=== PATIENT | female | born 1980 | race Caucasian/White ===

== ENCOUNTER 2016-08-21 11:34 | Outpatient (CLI) | payer OTHER ==
[2016-08-21 11:51] LABS: BASOPHILS % 0.5 (0.0-1.5); EOSINOPHILS % 0.8 % (0.0-6.8); MEAN CORPUSCULAR VOLUME 97.6 fl (80.0-100.0); MONOCYTES % 4.1 % (0.0-11.0)
[2016-08-21 12:22] LABS: eGFR (African) > 60; eGFR (Non-African) > 60
== END 2016-08-21 11:35 ==
LOC: LAB 11:34
PROVIDERS: ATTEND Physician Assistant
DX: Z00.00 Encounter for general adult medical examination without abnormal findings (principal)
CPT/HCPCS: 36415; 80053; 84443; 85025

== ENCOUNTER 2016-09-11 10:41 | Outpatient (CLI) | payer OTHER ==
[2016-09-12 10:32] LABS: CANDIDA SPECIES DNA PROBE NEGATIVE (NEGATIVE); GARDNERELLA VAGINALIS POSITIVE (NEGATIVE); TRICHOMONAS VAGINALIS NEGATIVE (NEGATIVE)
== END 2016-09-11 10:42 ==
LOC: LABRHC 10:41
PROVIDERS: ATTEND Physician Assistant
DX: Z12.4 Encounter for screening for malignant neoplasm of cervix (principal); N89.8 Other specified noninflammatory disorders of vagina; Z11.3 Encounter for screening for infections with a predominantly sexual mode of transmission
CPT/HCPCS: 87480; 87491; 87510; 87591; 88148; G0143

== ENCOUNTER 2017-09-12 13:27 | Emergency (ER) | payer BC ==
[2017-09-12] MEDS ORDERED: DIPH,PERTUSS(ACELL),TET VAC/PF 0.5 ML DISP.SYRIN IM ONE (14:14)
--- NOTE | 2017-09-12 14:16 | ED Physician Documentation ---
Lower Extremity Injury - HISTORIAN Historian: patient, spouse - HPI Stated Complaint: left foot injury Chief Complaint: Lower Extremity Injury Additional Information: working on camper w/shruthi slipped fell apparently shruthi hit dorsum lt foot w/ swelling abrasion eccymosis tenderness Onset: hours (1315) Where: home Severity: moderate Context: direct blow, wearing shoes (flip flops) Associated Symptoms:: swelling. denies: numbness distally, snapping sensation, popping sensation, unable to bear weight, became dizzy, seizure - ROS CONST: no problems CVS/RESP: denies: chest pain, shortness of breath, cough MS/SKIN/LYMPH: foot swelling. denies: none, ankle swelling NEURO: denies: headache, head injury, anxiety - PAST HX Past History: none Immunizations: denies: tetanus, UTD Allergies/Adverse Reactions: Allergies Allergy/AdvReac Type Severity Reaction Status Date / Time No Known Drug Allergies Allergy Unknown Unverified 09/12/17 13:55 - SOCIAL HX Smoking History: denies: non-smoker Alcohol Use: occasionally Drug Use: none - FAMILY HX Family History: no significant history - VITAL SIGNS Vital Signs: Vital Signs Temp Pulse Resp BP Pulse Ox 99 F 79 16 105/67 99 09/12/17 13:27 09/12/17 13:27 09/12/17 13:27 09/12/17 13:27 09/12/17 13:27 - REVIEWED ASSESSMENTS Nursing Assessment Reviewed: Yes Vitals Reviewed: Yes ED Results Lab/Radiology - Radiology Radiology Impressions: xray reveals no fracture - Orders Orders: ED Orders Category Date Time Status FOOT 3 VIEWS OR MORE [RAD] Stat Exams 09/12/17 Ordered Diph,Pertuss(Acell),Tet Vac/Pf [Adacel] Med 09/12/17 14:14 Once 0.5 ml IM .ONCE ONE Lower Extremities Injury Phy - Physical Exam General Appearance: mild distress Ligaments: No: pain on anterior drawer, laxity on anterior drawer, pain on posterior drawer Gait: limited by pain Neuro/Vascular/Tendon: no vascular compromise, sensation nml, abnml color ( eccymosis), ROM limited by pain. No: abnml warmth, abnml cap refill, pulse deficit, sensory deficit, motor deficit Resp/CVS: chest non-tender, breath sounds nml, heart sounds nml, no resp. distress Abdomen: non-tender Discharge Clincal Impression: crush injury dorsum lt foot Referrals: Francis Brown MD [Primary Care Provider] - 2 Days Condition: Good Disposition: 01 HOME, SELF-CARE Decision to Admit: NO Decision Time: 14:23
[2017-09-12 14:52] VITALS: BP 100/50
--- NOTE | 2017-09-12 15:09 | Diagnostic Imaging Report ---
HERNAN LUNA [facility] [id number] [facility] [address] [address] Report Submission Date: Sep 12, 2017 2:13:04 PM CDT Patient Study Name: YADI MASTERS Date: Sep 12, 2017 1:47:37 PM CDT Modality Type: DX Gender: F Description: LOWER EXTREMITY : 76 Institution: [facility] Physician: HERNAN LUNA Examination: Plain film left foot History: LT FOOT PAIN, PT WAS CHANGING A TIRE AND WANDA SLIPPED AND HIT FOOT (Hx ) Findings: 3 views of the left foot demonstrates normal cortical margins. No fracture or dislocation. No soft tissue swelling. No joint effusion. Impression: No acute osseous process. Electronically signed on Sep 12, 2017 2:13:04 PM CDT by: Brian MATTHEWS
== END 2017-09-12 14:30 | disposition home or self-care (01) ==
LOC: ED 13:27
DX: S97.82XA Crushing injury of left foot, initial encounter (principal); X58.XXXA Exposure to other specified factors, initial encounter; Y93.89 Activity, other specified; Y92.9 Unspecified place or not applicable; Y99.9 Unspecified external cause status
CPT/HCPCS: 73630; 99283